=== PATIENT | male | born 1985 | race American Indian/Alaskan Native ===

== ENCOUNTER 2017-09-23 06:25 | Day surgery (SDC) | payer BC ==
[2017-09-23] MEDS ORDERED: NACL BACTERIOSTATIC INFILTRATI ONE (07:04)
[2017-09-23] MEDS ORDERED: DILAUDID IV PRN (07:09)
[2017-09-23] MEDS ORDERED: ZOFRAN IV PRN (07:09)
--- NOTE | 2017-09-23 07:10 | Anesthesia Day of Surgery ---
Anesthesia Day of Surgery - Day of Surgery Patient Examined: Yes Patient H&P Reviewed: Yes Patient is NPO: Yes
[2017-09-23] MEDS ORDERED: XYLOCAINE MPF 2% ONE (07:40)
--- NOTE | 2017-09-23 07:40 | Anesthesia Day of Surgery ---
Anesthesia Day of Surgery - Day of Surgery Patient Examined: Yes Patient H&P Reviewed: Yes Patient is NPO: Yes
[2017-09-23] MEDS ORDERED: DIPRIVAN 10 MG/ML IV ONE (07:41)
[2017-09-23] MEDS ORDERED: TORADOL IV PRN (07:41)
[2017-09-23] MEDS ORDERED: DEMEROL IV PRN (07:41)
[2017-09-23] MEDS ORDERED: DILAUDID ONE (07:42)
[2017-09-23] MEDS ORDERED: LACTATED RINGERS 1,000 ML IV SCH ×2 (08:00)
[2017-09-23] MEDS ORDERED: VERSED IV NR (08:00)
[2017-09-23] MEDS ORDERED: ANCEF/STERILE WATER 2 GM/20 ML 2 GM/20 ML SYRINGE IV ONE (08:02)
[2017-09-23] MEDS ORDERED: ANCEF/STERILE WATER 2 GM/20 ML IV NR (08:10)
[2017-09-23] MEDS ORDERED: METHYLENE BLUE ONE (08:31)
[2017-09-23] MEDS ORDERED: ZOFRAN ONE (10:00)
[2017-09-23] MEDS ORDERED: NACL 0.9% IR ONE (12:00)
--- NOTE | 2017-09-23 13:42 | Post Anesthesia Evaluation ---
- Post Anesthesia Evaluation Patient Participated: Yes Airway Patent: Yes Stable Respiratory Function: Yes Nausea/Vomiting: No Temp > 96.8F: Yes Pain Manageable: Yes Adequeate Hydration: Yes Anesthesia Complications: No
--- NOTE | 2017-09-23 13:46 | Post Operative Note ---
Date of procedure: 09/23/17 Pre-op diagnosis: infertility Post-op diagnosis: same Findings: granuloma on r Procedure: bilateral vasovasostomy Anesthesia: GETA Surgeon: ARCELIA JUÁREZ Estimated blood loss: none Pathology: list (vas) Specimen disposition: to lab Condition: stable Disposition: PACU
--- NOTE | 2017-09-23 13:51 | Discharge Summary ---
Short Stay Discharge Plan Activity: other (no straining ) Weight Bearing Status: Full Weight Bearing Diet: low fat, low salt Wound: open to air Follow up with: LINH VELAZQUEZ JR, MD [Primary Care Provider] - 7 Days ARCELIA JUÁREZ MD [Staff Physician] - 7 Days
[2017-09-23 15:49] VITALS: BP 138/94
--- NOTE | 2017-09-23 17:27 | Operative Report ---
PREOPERATIVE DIAGNOSIS: Infertility, previous vasectomy. POSTOPERATIVE DIAGNOSES: Infertility, previous vasectomy. PROCEDURE: Bilateral vasovasostomy. SURGEON: Royce Miranda M.D. and Dr. Rico. ANESTHESIA: General. FINDINGS: The gentleman who has had a vasectomy about 8-9 years ago. He now presents for reversal. All risks and implications discussed. DESCRIPTION OF PROCEDURE: The patient brought to the operating room and placed on the operating table. Following induction of anesthesia, placed in supine position, prepped in the usual sterile fashion. On the right side, you can feel a granuloma. This was isolated. A small 1.5 cm incision was made over the vas and the vas was dissected free. The granuloma was dissected and excised. We had some stay sutures on the fascia in both sides and excellent fluid from the proximal side was coming out. We saw a lot of cells no distinct sperm. Lots of fluid, which was a little thickened, white fluid came from the proximal end. The distal end easily accommodated a 2-0 Prolene. The patient tolerated the procedure well thus far and attention was turned towards the left side. There was no palpable granuloma and the vas was dissected free. We felt a significant defect and once we dissected the vas on both sides, the defect was removed and we were able to mobilize both sides of the vas, so there would be no tension. At this point, we got both laser through the midline incision and attention was turned towards the right side first. Using the operative microscope, we were able to do an anastomosis with 8-0 Ethibond. We used some 5 and 6-0 Prolene to take some of the tension off on the outer fascia after the anastomosis was complete. Wound was irrigated. It should be noted that the operating microscope had some sort of a defect that we had to keep readjusting it because the visual aspect of it would be rocking on both sides when we were looking in it. I took a little extra time. We did look also in the large amount of fluid, white fluid from the left side, again lots of cells, no distinct sperm. A similar anastomosis, we had 4-5 sutures on each side without difficulty and we took the tension off with Prolene. The patient tolerated the procedure well. It took a little extra time because of the rocking of the operative head of the microscope. There was no significant bleeding. Hemostasis was excellent. A 1.5-2 cm incision was closed with interrupted 4-0 Vicryl and skin was closed with 4-0 Vicryl. The patient tolerated the procedure well and brought to recovery in stable condition. JOB# [id number] SHIRA/NICO
== END 2017-09-23 15:32 | disposition home or self-care (01) ==
LOC: OR 06:25
PROVIDERS: ATTEND Urology
DX: N50.89 Other specified disorders of the male genital organs (principal); Z88.8 Allergy status to other drugs, medicaments and biological substances; Z91.013 Allergy to seafood
CPT/HCPCS: 55400; 88304; J0690; J1170; J2250; J2405; J2704; J7120; Q9968